=== PATIENT | female | born 1945 | race Caucasian/White ===

== ENCOUNTER 2022-11-01 07:59 | Inpatient (IN) | payer BC ==
[~2022-11-01] VITALS: Ht 157.5 cm; Wt 69.9 kg
--- NOTE | 2022-11-01 08:06 | NUR ---
Patient to ER bed 03 to gown for evaluation. Side rails up. Report given to MARY ELLEN SALCEDO.
--- NOTE | 2022-11-01 08:06 | NUR ---
PT BIB SELF AWAKE AND ALERT AOX4, NO SOB OR DISTRESS. PT C/O PAIN AND BLISTEERS ON HER TOES BILATERALLY. PAIN 5/10. SKIN INTACT, WITH DTI ON TOES. PT HAS HX OF HTN, RA, HDL.
--- NOTE | 2022-11-01 08:06 | NUR ---
ER at bedside examining patient.
[2022-11-01 08:11] VITALS: BP_SYST 139
[2022-11-01 08:58] LABS: BASOPHILS % (AUTO) 0.5 % (0.0-2.0); EOSINOPHILS % (AUTO) 1.1 % (0.0-4.0); HEMATOCRIT 41.4 % (36-48); HEMOGLOBIN 13.6 g/dL (12.0-16.0); LYMPHOCYTES # (AUTO) 3.4 K/uL (1.0-5.5); LYMPHOCYTES % (AUTO) 32.3 % (20.5-51.5); MEAN CORPUSCULAR HEMOGLOBIN 27 pg (27-31); MEAN CORPUSCULAR HGB CONC 33 % (32-36); MEAN CORPUSCULAR VOLUME 83 fL (79.0-98.0); MONOCYTES % (AUTO) 7.4 % (1.7-9.3); NEUTROPHILS # (AUTO) 6.1 K/uL (1.8-7.7); NEUTROPHILS % (AUTO) 58.7 % (40.0-70.0); PLATELET COUNT (AUTO) 283 K/uL (130-430); RED BLOOD CELL COUNT(AUTO) 4.97 MIL/uL (4.2-6.2); RED CELL DISTRIBUTION WIDTH 16.4 % (9.0-15.0); WHITE BLOOD COUNT (AUTO) 10.4 K/uL (4.8-10.8)
[2022-11-01 08:59] LABS: EOSINOPHILS # (AUTO) 0.1 K/uL (0.0-0.4); MONOCYTES # (AUTO) 0.8 K/uL (0.0-1.0)
[2022-11-01 09:06] LABS: ANION GAP 9 (5-15); CALCIUM 9.1 mg/dL (8.4-11.0); CHLORIDE 105 mmol/L (98-107); CREATININE 1.03 mg/dL (0.55-1.30); GLUCOSE 90 mg/dL (70-99); UREA NITROGEN, BLOOD 17 mg/dL (8-21)
[2022-11-01 09:08] LABS: ERYTHROCYTE SEDIMENTATION RATE 13 MM/HR (0-20)
[2022-11-01 09:11] LABS: ALANINE AMINOTRANSFERASE 21 U/L (12-78); ALBUMIN 3.6 g/dL (3.4-4.8); ASPARTATE AMINOTRANSFERASE 17 U/L (10-37); TOTAL BILIRUBIN 0.2 mg/dL (0.0-1.0)
[2022-11-01 09:20] LABS: C-REACTIVE PROTEIN QUANT < 0.2 mg/dL (0-0.5)
[2022-11-01] MEDS ORDERED: IOHEXOL 350 mgI/mL, 150 ML INFUS..BTL IV ONE (09:59)
[2022-11-01] MEDS ORDERED: iohexoL 350 mgI/mL, 100 ML INFUS..BTL IV ONE (10:22)
[2022-11-01] MEDS ORDERED: PRED1TAB PO (10:38)
[2022-11-01] MEDS ORDERED: LOVA40TA75 PO (10:38)
[2022-11-01] MEDS ORDERED: TEMA30CA5 PO (10:38)
[2022-11-01] MEDS ORDERED: METH2.5T PO (10:38)
[2022-11-01] MEDS ORDERED: IBUP-1969 PO (10:38)
[2022-11-01] MEDS ORDERED: METO25TA6 PO (10:38)
[2022-11-01] MEDS ORDERED: NEU300 PO (10:38)
[2022-11-01] MEDS ORDERED: REMI100 IV (10:38)
--- NOTE | 2022-11-01 12:58 | NUR ---
COVID SWAB COLLECTED AND SENT TO LAB.
[2022-11-01] MEDS ORDERED: VANCOMYCIN HCL 1,000 MG in NS 250 ML IV ONE (13:00)
[2022-11-01] MEDS ORDERED: MEROPENEM 1 GM IVPB PREMIX 50 ML IV ONE (13:00)
[2022-11-01] MEDS ORDERED: VANCOMYCIN HCL 1000 MG/VIAL IV ONE (13:10)
[2022-11-01] MEDS ORDERED: ACETAMINOPHEN 325 MG TABLET PO PRN ×2 (13:30→14:45)
[2022-11-01] MEDS ORDERED: HEPARIN 25,000 UNITS/D5W 250ML 250 ML IV ONE (13:30)
[2022-11-01] MEDS ORDERED: ALBUTEROL SULFATE 0.083% 2.5 MG/3 ML VIAL.NEB INH PRN (13:30)
[2022-11-01] MEDS ORDERED: HYDROcodone/ACETAMIN 10-325 MG TAB PO PRN (13:30)
[2022-11-01] MEDS ORDERED: HEPARIN SODIUM,PORCINE 2000 UNITS/0.4 ML BOLUS IVP PRN (16:30)
[2022-11-01] MEDS ORDERED: HEPARIN SODIUM,PORCINE 3000 UNITS/0.6 ML BOLUS IVP PRN (16:30)
[2022-11-01] MEDS ORDERED: HEPARIN SODIUM,PORCINE 5,000 UNITS/ML VIAL IVP ONE (16:30)
--- NOTE | 2022-11-01 19:15 | NUR ---
REPORT GIVEN TO SYEDA SALCEDO FOR RESUMPTION OF CARE. PT STABLE
--- NOTE | 2022-11-01 19:30 | NUR ---
PT RECEIVED, CARE ASSUMED. PT A/OX4. PT DENIES ANY PAIN OR DISTRESS. INTRODUCED MYSELF. NOTED V/S. WILL CONTINUE TO MONITOR
[2022-11-01] MEDS: TEMAZEPAM 15 MG CAPSULE PO SCH (21:00)
[2022-11-01] MEDS: ATORVASTATIN 10 MG TABLET PO SCH (21:00)
[2022-11-01] MEDS ORDERED: LOVASTATIN 20 MG TABLET PO SCH (21:00)
[2022-11-01] MEDS: METOPROLOL TARTRATE 25 MG TABLET PO SCH (21:03)
[2022-11-01] MEDS: GABAPENTIN 300 MG CAPSULE PO SCH (21:03)
[2022-11-02 05:36] LABS: BASOPHILS # (AUTO) 0.1 K/uL (0.0-0.2); BASOPHILS % (AUTO) 0.5 % (0.0-2.0); EOSINOPHILS # (AUTO) 0.2 K/uL (0.0-0.4); EOSINOPHILS % (AUTO) 1.4 % (0.0-4.0); HEMOGLOBIN 12.9 g/dL (12.0-16.0); LYMPHOCYTES % (AUTO) 34.5 % (20.5-51.5); MEAN CORPUSCULAR HEMOGLOBIN 28 pg (27-31); MEAN CORPUSCULAR HGB CONC 33 % (32-36); MEAN CORPUSCULAR VOLUME 83 fL (79.0-98.0); MONOCYTES % (AUTO) 8.3 % (1.7-9.3); NEUTROPHILS # (AUTO) 6.4 K/uL (1.8-7.7); NEUTROPHILS % (AUTO) 55.3 % (40.0-70.0); PLATELET COUNT (AUTO) 256 K/uL (130-430); RED CELL DISTRIBUTION WIDTH 16.8 % (9.0-15.0); WHITE BLOOD COUNT (AUTO) 11.5 K/uL (4.8-10.8)
[2022-11-02 05:58] LABS: ALANINE AMINOTRANSFERASE 21 U/L (12-78); ALBUMIN 3.4 g/dL (3.4-4.8); ANION GAP 11 (5-15); ASPARTATE AMINOTRANSFERASE 18 U/L (10-37); CALCIUM 8.7 mg/dL (8.4-11.0); CHLORIDE 109 mmol/L (98-107); GLUCOSE 88 mg/dL (70-99); TOTAL BILIRUBIN 0.4 mg/dL (0.0-1.0); UREA NITROGEN, BLOOD 12 mg/dL (8-21)
--- NOTE | 2022-11-02 06:15 | NUR ---
PT SITTING UP IN BED CALM, RELAXED. PT DENIES ANY PAIN OR DISTRESS. WILL CONTINUE TO MONITOR
--- NOTE | 2022-11-02 07:13 | NUR ---
received report from manuelito vicente in stable condition, awaiting floor tele, vss
--- NOTE | 2022-11-02 07:48 | NUR ---
spoke to yuridia from pharmacy regarding admission meds needs to be delivered.
--- NOTE | 2022-11-02 07:55 | NUR ---
PT AMBULATED TO RESTROOM WITH STEADY GAIT AT THIS TIME
[2022-11-02] MEDS: GABAPENTIN 300 MG CAPSULE PO SCH ×2 (08:26→23:01)
[2022-11-02] MEDS: ASPIRIN 81 MG TAB.CHEW PO SCH (08:26)
[2022-11-02] MEDS: METOPROLOL TARTRATE 25 MG TABLET PO SCH ×2 (08:27→21:00)
--- NOTE | 2022-11-02 08:31 | NUR ---
ORDERED FOOD TRAY FOR PT AT THIS TIME
--- NOTE | 2022-11-02 09:00 | NUR ---
PT SITTING UP IN BED EATING BREAKFAST IN STABLE CONDITION
--- NOTE | 2022-11-02 11:13 | NUR ---
SON AT BEDSIDE AT THIS TIME
--- NOTE | 2022-11-02 12:33 | NUR ---
DR DAVENPORT HERE AT BEDSIDE EXPLAINED THAT SHE HAS NARROW VESSELS IN HER LOWER EXTREMITIES
--- NOTE | 2022-11-02 17:14 | NUR ---
PLACED 20G LFA AT THIS TIME
--- NOTE | 2022-11-02 19:15 | NUR ---
Received report at this time. Pt denies pain at this time.
--- NOTE | 2022-11-02 20:45 | NUR ---
Patient will be admitted to care of Dr. Olivares. Admitted to tele unit. Will go to room 120 bed B. Belongings list completed. Complete and up to date summary report printed. SBAR report given at bedside to MATIAS Glass with opportunity for questions.
--- NOTE | 2022-11-02 20:50 | NUR ---
ADMISSION NOTE Received patient from ER via isac, received report from KELSIE/ RN. Patient admitted with diagnosis of PVD/VASCULITIS. Patient oriented to hospital routine, call light, toileting and safety-patient verbalized understanding.
[2022-11-02 21:22] VITALS: BP_SYST 145
--- NOTE | 2022-11-02 22:43 | NUR ---
CONSULTATION PAGED/CALLED Reason for Consultation: PVD, Vasculitis Person Who was Notified: Zaina Consulting Physician: Dr. Vimal Desai ( on vacation), welder setter electron beam machine Dr. Georges Bailey Burnishing Machine Operator Specialty: Vascular surgeon Ordering Physician: Dr. Elise Beaver
[2022-11-02] MEDS: IBUPROFEN 600 MG TABLET PO PRN (22:59)
[2022-11-02] MEDS: ATORVASTATIN 10 MG TABLET PO SCH (23:01)
[2022-11-02] MEDS: TEMAZEPAM 15 MG CAPSULE PO SCH (23:09)
[2022-11-02] MEDS: HEPARIN 25,000 UNITS in 250 ML PREMIX IV PRN (23:14)
[2022-11-03] VITALS: BP_SYST 95
--- NOTE | 2022-11-03 07:21 | NUR ---
CLOSING NOTES Patient resting in bed - no s/s pain or distress noted. Respirations even and unlabored - head of bed elevated. IV site patent - no s/s redness, infection, or infiltration. Bed locked and in lowest position.
--- NOTE | 2022-11-03 07:30 | NUR ---
received pt with heparin drip running at 10ml/hr (19702splcz/250ml), no bleeding reported or noted. will cont to monitor pt.
[2022-11-03 07:56] VITALS: BP_SYST 107
[2022-11-03] MEDS: GABAPENTIN 300 MG CAPSULE PO SCH ×2 (08:16→21:18)
[2022-11-03] MEDS: ASPIRIN 81 MG TAB.CHEW PO SCH (08:16)
[2022-11-03] MEDS: METOPROLOL TARTRATE 25 MG TABLET PO SCH ×2 (08:17→21:00)
[2022-11-03] MEDS: IBUPROFEN 600 MG TABLET PO PRN ×2 (08:20→21:22)
--- NOTE | 2022-11-03 09:15 | NUR ---
heparin drip stopped due to high ptt. will re start in 1 hour per protocol
--- NOTE | 2022-11-03 10:15 | NUR ---
heparin drip re started at 800 units/hr, joe will be checked at 1615.
[2022-11-03] MEDS: HEPARIN 25,000 UNITS in 250 ML PREMIX IV PRN (10:27)
[2022-11-03 11:07] LABS: ANTI NUCLEAR AB WITH REFLEX Negative (Negative)
[2022-11-03 11:47] VITALS: BP_SYST 117
[2022-11-03 18:19] VITALS: BP_SYST 110
--- NOTE | 2022-11-03 19:25 | NUR ---
paged dr villa (covering for dr sims). endorsed to pollo blas.
[2022-11-03 20:00] VITALS: BP_SYST 102
[2022-11-03] MEDS: TEMAZEPAM 15 MG CAPSULE PO SCH (21:18)
[2022-11-03] MEDS: ATORVASTATIN 20 MG TABLET PO SCH (21:23)
[2022-11-04] VITALS: BP_SYST 99
[2022-11-04 06:15] LABS: BASOPHILS % (AUTO) 0.5 % (0.0-2.0); EOSINOPHILS # (AUTO) 0.3 K/uL (0.0-0.4); HEMATOCRIT 35.3 % (36-48); HEMOGLOBIN 11.7 g/dL (12.0-16.0); LYMPHOCYTES % (AUTO) 47.2 % (20.5-51.5); MEAN CORPUSCULAR HEMOGLOBIN 28 pg (27-31); MEAN CORPUSCULAR HGB CONC 33 % (32-36); MEAN CORPUSCULAR VOLUME 84 fL (79.0-98.0); MONOCYTES # (AUTO) 0.6 K/uL (0.0-1.0); MONOCYTES % (AUTO) 7.2 % (1.7-9.3); NEUTROPHILS # (AUTO) 3.5 K/uL (1.8-7.7); NEUTROPHILS % (AUTO) 41.1 % (40.0-70.0); PLATELET COUNT (AUTO) 187 K/uL (130-430); RED BLOOD CELL COUNT(AUTO) 4.22 MIL/uL (4.2-6.2); RED CELL DISTRIBUTION WIDTH 16.5 % (9.0-15.0); WHITE BLOOD COUNT (AUTO) 8.5 K/uL (4.8-10.8)
[2022-11-04 06:31] LABS: ANION GAP 10 (5-15); CALCIUM 8.4 mg/dL (8.4-11.0); CHLORIDE 108 mmol/L (98-107); CREATININE 0.88 mg/dL (0.55-1.30); GLUCOSE 97 mg/dL (70-99); UREA NITROGEN, BLOOD 14 mg/dL (8-21)
[2022-11-04] MEDS: HEPARIN 25,000 UNITS in 250 ML PREMIX IV PRN ×2 (07:02→23:20)
[2022-11-04 07:38] VITALS: BP_SYST 94
--- NOTE | 2022-11-04 07:55 | NUR ---
APTT IS 60.8 AT 440AM. NO CHANGE IN RATE. WILL RE CHECK APTT IN AM PER PROTOCOL.
[2022-11-04] MEDS: METOPROLOL TARTRATE 25 MG TABLET PO SCH ×2 (07:59→21:00)
[2022-11-04] MEDS: ASPIRIN 81 MG TAB.CHEW PO SCH (08:13)
[2022-11-04] MEDS: GABAPENTIN 300 MG CAPSULE PO SCH ×2 (08:13→21:12)
[2022-11-04] MEDS: IBUPROFEN 600 MG TABLET PO PRN ×2 (08:16→21:19)
[2022-11-04 09:20] VITALS: BP_SYST 99
--- NOTE | 2022-11-04 10:33 | NUR ---
DR MCKEON WAS HERE , IS AWARE THAT DR CUNHA AND /OR DANNY JENSEN HAS NOT SEEN THE PT YET. FOLLOWED UP WITH TRISTAN YANES THE CONSULT FOR VASCULAR SURGEON.
[2022-11-04] MEDS ORDERED: POTASSIUM CHLORIDE 20 MEQ TAB.PRT.SR PO ONE (14:00)
[2022-11-04 14:28] VITALS: BP_SYST 130
[2022-11-04 19:30] VITALS: BP_SYST 110
--- NOTE | 2022-11-04 19:30 | NUR ---
PM ASSESSMENT; -Patient is awake, alert, oriented X 4. Patient oriented to hospital room, call light, toileting, pain management and safety-teach back done. Heparin drip @ 10ml/hr. No s/s any bleeding noted. Pt denies any chest pain,pain,sob,or any acute distress. Patient informed that Miguelina will be her nurse and that their room number is [id number]. Side rails x3, Call light within reach. cont to monitor pt. Addendum: 11/05/22 at 0645 by [facility], MATIAS SALCEDO CORRECTION; UPON SHIFT CHANGE; HEPARIN DRIP IS AT 9ML/HR (900 UNITS/HR); CORRECTION- NOT @ 10ML/HR.
--- NOTE | 2022-11-04 19:37 | NUR ---
PT CONTINUED TO BE ON HEPARIN DRIP. NO CHANGE IN SETTINGS. NO BLEEDING NOTED. ENDORSED TO NIGHT NURSE.
[2022-11-04] MEDS: TEMAZEPAM 15 MG CAPSULE PO SCH (21:12)
[2022-11-04] MEDS: ATORVASTATIN 20 MG TABLET PO SCH (21:12)
[2022-11-05 00:08] VITALS: BP_SYST 117
--- NOTE | 2022-11-05 00:08 | NUR ---
ROUNDS; -Pt is resting in bed comfortably. Gave snack and juice. Heparin drip @ 10ml/hr. No s/s any bleeding noted. Pt denies any chest pain,pain,sob,or any acute distress. VS stable. Side rails x3, bed alarmed, Call light within reach. cont to monitor pt.
--- NOTE | 2022-11-05 03:42 | NUR ---
ROUNDS; -Pt is asleep in bed comfortably. NO s/s any acute distress noted. Heparin drip same rate. No s/s any bleeding noted. Side rails x3, bed alarmed, Call light within reach. cont to monitor pt.
[2022-11-05] MEDS: HEPARIN 25,000 UNITS in 250 ML PREMIX IV PRN ×2 (06:05→06:07)
--- NOTE | 2022-11-05 06:07 | NUR ---
NOTES; PTT=39.7, INCREASED 2 ML/HR ( NOW AT RATE 11 ML/HR) PER PROTOCOL AND GAVE HEPARIN 2000 UNITS BOLUS IVP AND ORDERED PTT Q6 @ 1200 AT NOON.
--- NOTE | 2022-11-05 06:46 | NUR ---
CLOSING NOTES; -Pt is asleep in bed comfortably. NO s/s any acute distress noted. Heparin drip is same rate. No s/s any bleeding noted. Side rails x3, bed alarmed, Call light w/in reach. Pt's condition stable. Will endorse to next nurse to cont care.
[2022-11-05] MEDS: ASPIRIN 81 MG TAB.CHEW PO SCH (07:55)
[2022-11-05] MEDS: GABAPENTIN 300 MG CAPSULE PO SCH ×2 (07:55→20:57)
[2022-11-05] MEDS: IBUPROFEN 600 MG TABLET PO PRN ×2 (07:59→21:05)
[2022-11-05] MEDS: METOPROLOL TARTRATE 25 MG TABLET PO SCH ×2 (09:00→20:58)
--- NOTE | 2022-11-05 09:49 | NUR ---
Spoke to ELIO cortez [phone]-they need authorization to schedule patient. Spoke to at [facility] [phone] she will get an authorization to [facility] and set up transport for the procedure and let me know when everything is in place.
[2022-11-05 12:11] VITALS: BP_SYST 106
--- NOTE | 2022-11-05 12:37 | NUR ---
Requested order for procedure faxed to [facility]-phone [phone]/FAX [phone]
--- NOTE | 2022-11-05 13:50 | NUR ---
Received a call from IR at [facility]-they are trying to schedule the patient's procedure for Thursday- they will call when they have the prcedure scheduled.
[2022-11-05 16:00] VITALS: BP_SYST 108
[2022-11-05] MEDS: HEPARIN 25,000 UNITS/D5W 250ML 250 ML IV PRN ×2 (16:30→18:48)
[2022-11-05] MEDS ORDERED: HEPARIN SODIUM,PORCINE 3000 UNITS/0.6 ML BOLUS IVP PRN (17:00)
[2022-11-05] MEDS ORDERED: HEPARIN SODIUM,PORCINE 2000 UNITS/0.4 ML BOLUS IVP PRN (17:00)
--- NOTE | 2022-11-05 19:20 | NUR ---
Opening note Received SBAR report from MATIAS Calhoun and we visit the patient at bedside. No distress noted and she is on room air. Heparin infusing to IV on RFA. Bed is locked in lowest position, side rails up 2x, call light w/in reach and bed alarm is off - she ambulates steady.
[2022-11-05 20:00] VITALS: BP_SYST 108
--- NOTE | 2022-11-05 20:48 | NUR ---
Dr. Olivares, pt c/o gas pain Pt c/o gas pain, she said it started this evening and thinks it was the vegetables that caused her gas/bloating/pain. She does report two bowel movements today; thus not constipated. Called Dr. Olivares's cell; no answer and left voice mail.
[2022-11-05] MEDS: TEMAZEPAM 15 MG CAPSULE PO SCH (20:57)
[2022-11-05] MEDS: ATORVASTATIN 20 MG TABLET PO SCH (20:58)
--- NOTE | 2022-11-05 21:05 | NUR ---
meds Scheduled meds given; she took all tablets at same time in the cup and swallowed with water. Reviewed side effects of meds, Restoril-and she verbalized understanding. She ambulates by self to restroom and she is aware to call for assistance.
--- NOTE | 2022-11-05 22:32 | NUR ---
rounds / MD not call back Patient resting in side posture w/eyes closed. Momentarily awakened. Informed patient MD has been called twice and awaiting call back. She said, still has gas/bloating discomfort but she will be ok waiting for morning when he comes in.
--- NOTE | 2022-11-05 23:35 | NUR ---
Heparin drip, no change in rate Latest lab result for PTT at 2227 is 61; per protocol no change in rate.
[2022-11-06 00:20] VITALS: BP_SYST 89
--- NOTE | 2022-11-06 00:20 | NUR ---
V/S, rounds Patient is resting w/eyes closed. Momentarily awakened for V/S. B/P is low (89/51, HR 65) and I informed would re-check. Also she is taking Motrin 600mg BID and I informed her, presently she is on Heparin and normally the patients are not on Motrin due to increased risk of bleeding (Her H/H are trending down). She got upset and wants to know why I'm taking her medication away, she adds that her construction technician took 20yrs to get the meds figured out and she will not stop the Motrin. She said she will leave if I take her meds and her next med is sheduled for 0900, so I will not be here.
--- NOTE | 2022-11-06 01:10 | NUR ---
awake, sandwich, water Patient called the light to request ice water. She is awake and still upset. She said, if I'm "going to keep making rounds and waking her up every two hours, why sleep. Might as well just stay up" She requested a half sandwich, ice water and coffee.
[2022-11-06 02:00] VITALS: BP_SYST 100
--- NOTE | 2022-11-06 02:00 | NUR ---
V/S, rounds Patient is still awake, lights on, she is sitting in hi fowlers and watching t.v. I rechecked V/S ... B/P 100/53, HR 61. I explained to her that she misunderstood the rounding log. I told her I come in and check on her, but if she is asleep I will not wake her up and ask her if she needs anything, I will let her sleep. She does not understand and insisted, why fall asleep if you are coming back. Then I told her, I will let you rest, I won't come in.
[2022-11-06] MEDS: HEPARIN 25,000 UNITS/D5W 250ML 250 ML IV PRN (06:29)
[2022-11-06 08:00] VITALS: BP_SYST 110
--- NOTE | 2022-11-06 08:21 | NUR ---
OPENING NOTES: PT IS SITTING EDGE OF BED EATING BREAKFAST AND WATCHING TV. NO S/S OF DISTRESS. PT REPORTED " A LITTLE PAIN IN HER HANDS" BUT DID NOT REQUEST PAIN MEDS. BREATHING IS EVEN AND UNLABORED ON RA. ALL NEEDS MET AT THIS TIME, SAFETY CHECKS MADE AND CALL LIGHT PLACED WITHIN REACH.
--- NOTE | 2022-11-06 08:25 | NUR ---
DRIP: PTT RESULT IS 63.7 DRAWN 11/06/22. GOAL IS 50-75. NO ACTION IS NEEDED AT THIS TIME ON THE HEPARIN DRIP PER PROTOCOL.
--- NOTE | 2022-11-06 09:56 | NUR ---
MD: DR MCKEON BEDSIDE WITH PATIENT. NEW ORDERS FOLLOWS: REDUCE GABAPENTIN TO 300 MG BID, D/C LOPRESSOR, SIMETHICONE 80 MG BID, NITROPASTE 1/2 INCH THIN LAYER SPREAD OVER PATIENT'S TOES BILATERALLY ONCE DAILY, KEEP BLOOD PRESSURE ABOVE 130 BY ENCOURAGING FLUIDS AND TRENTAL 400MG BID.
[2022-11-06] MEDS: ASPIRIN 81 MG TAB.CHEW PO SCH (10:09)
[2022-11-06] MEDS: IBUPROFEN 600 MG TABLET PO PRN (10:14)
--- NOTE | 2022-11-06 12:00 | NUR ---
ROUNDS: PT SITTING EDGE OF BED WITH SON AT BEDSIDE. PT IS DOING HER FINANCES WITH SON. NO S/S OF DISTRESS OR PAIN REPORTED. BREATHING IS EVEN AND UNLABORED ON RA. PT REQUESTED TO WALK AROUND HER ROOM A BIT. SHE IS AMBULATORY. ALL NEEDS MET AT THIS TIME, SAFETY CHECKS MADE AND CALL LIGHT WITHIN REACH.
[2022-11-06 12:01] VITALS: BP_SYST 138
[2022-11-06 12:06] LABS: ATYPICAL pANCA <1:20 titer (Neg:<1:20); CYTOPLASMIC (C-ANCA) <1:20 titer (Neg:<1:20); CYTOPLASMIC (P-ANCA) <1:20 titer (Neg:<1:20)
--- NOTE | 2022-11-06 13:51 | NUR ---
patient accepted at [facility] for angioplasty on 11/07 at 10:30 AM. at [place] notified-she will be setting up transportation [phone]. [facility] requesting PT/INR be drawn with results to be sent to [facility]. They were informed the patient is on a heparin gtt at this time.
--- NOTE | 2022-11-06 14:00 | NUR ---
ROUNDS: PT IN BED WATCHING TV. UPDATED PT ON HER PLAN OF CARE AND TRANSFER TO [facility] AT 1030AM 11/07/22 FOR ANGIOPLASTY. SHE VERBALIZED UNDERSTANDING.
[2022-11-06 16:00] VITALS: BP_SYST 129
[2022-11-06 16:06] LABS: PROTHROMBIN TIME 10.4 SECS (9.5-12.5)
--- NOTE | 2022-11-06 18:21 | NUR ---
CLOSING NOTES: PT SITTING EDGE OF BED EATING DINNER AND WATCHING TV. NO S/S OF DISTRESS OR PAIN REPORTED. BREATHING EVEN AND UNLABORED ON RA. IV PATENT. NEXT APTT DRAW WILL BE ON 11/07/22 AT 0500. ALL NEEDS MET AT THIS TIME ,SAFETY CHECKS MADE AND CALL LIGHT WITHIN REACH. WILL ENDORSE TO INDUCTION MACHINE SETTER NURSE. WILL ENDORSE TO INDUCTION MACHINE SETTER NURSE.
[2022-11-06 20:00] VITALS: BP_SYST 128
--- NOTE | 2022-11-06 20:00 | NUR ---
OPENING Patient resting in bed, unlabored breathing on room air. Heparin drip infusing at 1100 units/hr, IV patent. Cyanosis noted to toes. Skin is warm, pulses palpable. Patient is able to move toes and states she feels tingling in her toes at times but still has feeling in them. Safety precautions in place.
[2022-11-06] MEDS: PENTOXIFYLLINE 400 MG TABLET.SA (TRENtal) PO SCH (20:56)
[2022-11-06] MEDS: ATORVASTATIN 20 MG TABLET PO SCH (20:59)
[2022-11-06] MEDS: GABAPENTIN 300 MG CAPSULE PO SCH (20:59)
[2022-11-06] MEDS: SIMETHICONE 80 MG TAB.CHEW PO SCH (20:59)
[2022-11-06] MEDS: TEMAZEPAM 15 MG CAPSULE PO SCH (20:59)
[2022-11-06] MEDS: NITROGLYCERIN 1 INCH (GM) OINT. TP SCH (21:01)
--- NOTE | 2022-11-06 23:20 | NUR ---
Received call from cali Olivasdye house worker at [facility]. He stated that the procedure is scheduled for 1300 tomorrow 11/07/22 and that patient will go to room 263A. He said to call [phone] for report once transport is arranged.
[2022-11-06] MEDS: traMADol HCL HCL 50 MG TABLET (ULTRAM) PO PRN (23:44)
[2022-11-07] VITALS: BP_SYST 110
--- NOTE | 2022-11-07 00:28 | NUR ---
Midnight vitals - BP 99/50, HR 64. Multiple calls made to Dr. Olivares and voicemail with callback number left. Awaiting call back. Patient's toes remain unchanged in color from start of shift, skin warm, pulses palpable.
[2022-11-07] MEDS: HEPARIN 25,000 UNITS/D5W 250ML 250 ML IV PRN (00:55)
--- NOTE | 2022-11-07 00:55 | NUR ---
HEPARIN DRIP - New bag hung, rate unchanged at 1100 units/hr per protocol. Verified by 2nd RN. Patient is resting in bed, no complaint of pain, AOx4. NPO after midnight. Patient verbalized understanding.
--- NOTE | 2022-11-07 02:37 | NUR ---
BIJAN - Spoke with Vicki at [facility] who stated that transport to [facility] is scheduled for 0930 in the morning. May also confirmed that they are aware that patient is on a heparin drip.
--- NOTE | 2022-11-07 05:24 | NUR ---
DR. GRIFFITH Spoke with Dr. Griffith. Notified him that patient's BP is 101/[address] Blackmon wanted to keep SBP>130. Also informed him that patient is reporting new sharp pain to right calf and that right lower leg is slightly more swollen than left leg. Patient also reporting pain to back and asked if she can get pain medication this morning. Received order for 250mL NS bolus and ultrasound to lower extremities. Dr. Griffith also stated it is ok for patient to be NPO except meds this morning and that ordered Tramadol PRN is ok to give.
[2022-11-07] MEDS ORDERED: NS 250 ML IV ONE (05:30)
[2022-11-07 05:49] LABS: BASOPHILS % (AUTO) 0.5 % (0.0-2.0); EOSINOPHILS # (AUTO) 0.1 K/uL (0.0-0.4); EOSINOPHILS % (AUTO) 2.2 % (0.0-4.0); HEMATOCRIT 36.8 % (36-48); HEMOGLOBIN 12.1 g/dL (12.0-16.0); MEAN CORPUSCULAR HEMOGLOBIN 28 pg (27-31); MEAN CORPUSCULAR HGB CONC 33 % (32-36); MEAN CORPUSCULAR VOLUME 83 fL (79.0-98.0); MONOCYTES # (AUTO) 0.6 K/uL (0.0-1.0); MONOCYTES % (AUTO) 10.3 % (1.7-9.3); NEUTROPHILS # (AUTO) 3.4 K/uL (1.8-7.7); PLATELET COUNT (AUTO) 206 K/uL (130-430); RED BLOOD CELL COUNT(AUTO) 4.41 MIL/uL (4.2-6.2); RED CELL DISTRIBUTION WIDTH 16.6 % (9.0-15.0); WHITE BLOOD COUNT (AUTO) 6.1 K/uL (4.8-10.8)
[2022-11-07] MEDS: traMADol HCL HCL 50 MG TABLET (ULTRAM) PO PRN (05:49)
--- NOTE | 2022-11-07 06:20 | NUR ---
New 20G IV placed to left forearm. Patient stated her leg feels better, especially when it is elevated up on the bed, and that it gets worse if she is standing or if her leg is hanging down. 250mL bolus running.
--- NOTE | 2022-11-07 07:30 | NUR ---
CLOSING Patient stable through night. Blue/black discoloration to toes unchanged, surrounding skin warm, pulses palpable, movement intact. Heparin drip infusing per protocol. PTT was drawn this morning. Patient ambulated with assist to bathroom. Updated on plan of care for transfer to [facility] this morning. NPO after midnight except for sip of water with PRN Tramadol, as approved by Dr. Olivares. Call light in reach, bed low and locked, bed alarm on. Endorsed to oncoming nurse.
[2022-11-07 08:00] VITALS: BP_SYST 133
[2022-11-07 08:15] LABS: CHLORIDE 104 mmol/L (98-107)
[2022-11-07] MEDS: SIMETHICONE 80 MG TAB.CHEW PO SCH (08:19)
[2022-11-07] MEDS: ASPIRIN 81 MG TAB.CHEW PO SCH (08:19)
[2022-11-07] MEDS: GABAPENTIN 300 MG CAPSULE PO SCH (08:19)
[2022-11-07] MEDS: PENTOXIFYLLINE 400 MG TABLET.SA (TRENtal) PO SCH (08:21)
[2022-11-07] MEDS: NITROGLYCERIN 1 INCH (GM) OINT. TP SCH (08:24)
[2022-11-07 08:29] LABS: ALANINE AMINOTRANSFERASE 42 U/L (12-78); ALBUMIN 3.4 g/dL (3.4-4.8); ANION GAP 12 (5-15); ASPARTATE AMINOTRANSFERASE 35 U/L (10-37); CALCIUM 9.1 mg/dL (8.4-11.0); CREATININE 0.82 mg/dL (0.55-1.30); GLUCOSE 96 mg/dL (70-99); TOTAL BILIRUBIN 0.2 mg/dL (0.0-1.0); UREA NITROGEN, BLOOD 7 mg/dL (8-21)
--- NOTE | 2022-11-07 09:02 | NUR ---
CRITICAL LAB: Received call from Laboratory with critical lab value . Medical record number and patient name verified. Read back of values done. Dr. Olivares notified of value. Received order to hold Heparin drip IV at this time.
[2022-11-07 09:05] VITALS: BP_SYST 133
--- NOTE | 2022-11-07 09:30 | NUR ---
Contacted [facility] and gave report to nurse Pruitt/ YO. Made aware about critical PTT of 150 sec. Patient will be picked-up by ambulance by 0930 today.
--- NOTE | 2022-11-07 09:48 | NUR ---
[facility] CALLED SPOKE WITH SANJIV AT [facility] REGULATOR TESTER TIME IS AT 11AM CALLED .
[2022-11-07 09:50] VITALS: BP_SYST 110
--- NOTE | 2022-11-07 11:33 | NUR ---
[facility] arrived, gave report and endorsed care to paramedics. VS stable, no fever or c/o pain. Pt. is picked by two paramedics via gurney in stable condition.
== END 2022-11-07 11:35 | disposition short-term general hospital (02) | DRG 301 ==
LOC: SED 07:59 → STU 13:24
PROVIDERS: ADMIT Internal Medicine; ATTEND Internal Medicine
DX: I73.9 Peripheral vascular disease, unspecified (principal); M06.9 Rheumatoid arthritis, unspecified; I10 Essential (primary) hypertension; E78.5 Hyperlipidemia, unspecified; Z20.822 Contact with and (suspected) exposure to COVID-19; Z88.8 Allergy status to other drugs, medicaments and biological substances; Z79.899 Other long term (current) drug therapy; Z79.1 Long term (current) use of non-steroidal anti-inflammatories (NSAID)
CPT/HCPCS: 36415; 75635; 76376; 80048; 80053; 83735; 85025; 85610-TC; 85651-TC; 85730-TC; 86038; 86140; 86256; 94760; 96365; 96366; 99285; G0378; J1644; J2185; J3370; Q9967